=== PATIENT | female | born 1950 | race Caucasian/White ===

== ENCOUNTER 2016-09-16 12:38 | Outpatient (CLI) | payer BC | END 2016-09-16 18:32 | disposition home or self-care (01) | LOC: SMA 12:38 | PROVIDERS: ATTEND Obstetrics & Gynecology Gynecology | DX: Z12.31 Encounter for screening mammogram for malignant neoplasm of breast (principal) | CPT/HCPCS: 77067; G0202 ==

== ENCOUNTER 2017-09-17 10:54 | Outpatient (CLI) | payer BC | END 2017-09-17 20:05 | disposition home or self-care (01) | LOC: SMA 10:54 | PROVIDERS: ATTEND Obstetrics & Gynecology Gynecology | DX: Z12.31 Encounter for screening mammogram for malignant neoplasm of breast (principal) | CPT/HCPCS: 77067 ==

== ENCOUNTER 2019-01-13 09:01 | Outpatient (CLI) | payer BC | END 2019-01-13 19:54 | disposition home or self-care (01) | LOC: SMA 09:01 | PROVIDERS: ATTEND Obstetrics & Gynecology Gynecology | DX: Z12.31 Encounter for screening mammogram for malignant neoplasm of breast (principal) | CPT/HCPCS: 77067 ==

== ENCOUNTER 2019-01-19 10:15 | Outpatient (CLI) | payer BC | END 2019-01-19 21:08 | disposition home or self-care (01) | LOC: SRD 10:15 | DX: M47.812 Spondylosis without myelopathy or radiculopathy, cervical region (principal); M46.02 Spinal enthesopathy, cervical region; M48.02 Spinal stenosis, cervical region | CPT/HCPCS: 72050-TC ==

== ENCOUNTER 2020-04-24 10:41 | Outpatient (CLI) | payer MEDICARE, MEDICAID | END 2020-04-24 19:48 | disposition home or self-care (01) | LOC: SMA 10:41 | PROVIDERS: ATTEND Obstetrics & Gynecology Gynecology | DX: Z12.31 Encounter for screening mammogram for malignant neoplasm of breast (principal) | CPT/HCPCS: 77067 ==

== ENCOUNTER 2020-05-01 08:49 | Outpatient (CLI) | payer MEDICARE, MEDICAID | END 2020-05-01 21:08 | disposition home or self-care (01) | LOC: SUS 08:49 | PROVIDERS: ATTEND Obstetrics & Gynecology Gynecology | DX: N60.02 Solitary cyst of left breast (principal); R92.2 Inconclusive mammogram | CPT/HCPCS: 76641 ==

== ENCOUNTER 2021-06-25 10:20 | Outpatient (CLI) | payer MEDICARE, OTHER | END 2021-06-25 19:36 | disposition home or self-care (01) | LOC: SMA 10:20 | PROVIDERS: ATTEND Obstetrics & Gynecology Gynecology | DX: Z12.31 Encounter for screening mammogram for malignant neoplasm of breast (principal) | CPT/HCPCS: 77067 ==